=== PATIENT | female | born 1980 | race Caucasian/White ===

== ENCOUNTER 2017-01-15 12:34 | Inpatient (IN) | payer OTHER ==
[~2017-01-15] VITALS: Ht 167.6 cm; Wt 112.7 kg
[~2017-01-15 12:34] MED LIST: SERTRALINE 100 MG TAB PO SCH
[2017-01-15] MEDS ORDERED: ZYRT10TA2 PO (12:45)
[2017-01-15] MEDS ORDERED: SING10TA32 PO (12:45)
[2017-01-15] MEDS ORDERED: ZOLO100T PO (12:45)
[2017-01-15] MEDS ORDERED: DULE100A INH (12:45)
[2017-01-15] MEDS ORDERED: SPRI28TA PO (12:45)
[2017-01-15 13:22] LABS: MEAN CORPUSCULAR HGB CONC 32.9 g/dl (32.0-36.5); PLATELET COUNT, AUTOMATED 293 10^3/uL (150-450); RED CELL DISTRIBUTION WIDTH 13.3 % (11.5-14.5); WHITE BLOOD COUNT 8.2 10^3/uL (4.0-10.0)
[2017-01-15 13:34] LABS: METHADONE URINE NEGATIVE (NEGATIVE)
[2017-01-15 13:35] LABS: CONTROL LINE HCG INT CTR LINE PRESENT
[2017-01-15 14:10] LABS: ALBUMIN 3.3 GM/DL (3.2-5.2); ALBUMIN/GLOBULIN RATIO 0.72 (1.00-1.93); ALKALINE PHOSPHATASE 55 U/L (45-117); ALT/SGPT 18 U/L (12-78); ANION GAP 9 MEQ/L (8-16); AST/SGOT 11 U/L (7-37); BILIRUBIN,TOTAL 0.3 MG/DL (0.2-1.0); BLOOD UREA NITROGEN 6 MG/DL (7-18); CALCIUM LEVEL 8.6 MG/DL (8.5-10.1); CARBON DIOXIDE LEVEL 23 MEQ/L (21-32); CHLORIDE LEVEL 108 MEQ/L (98-107); CREATININE FOR GFR 0.78 MG/DL (0.55-1.02); GLOMERULAR FILTRATION RATE > 60.0 (>60); GLUCOSE, FASTING 92 MG/DL (70-105); SODIUM LEVEL 140 MEQ/L (136-145); TOTAL PROTEIN 7.9 GM/DL (6.4-8.2)
[2017-01-15] MEDS ORDERED: MOM 30ML SUSPENSION UDC PO PRN (15:30)
[2017-01-15] MEDS ORDERED: OLANZapine 5 MG TAB PO PRN (15:30)
[2017-01-15] MEDS ORDERED: traZODone 50 MG TAB PO PRN (15:30)
[2017-01-15] MEDS ORDERED: MAALOX 30 ML SUSP *UDC PO PRN (15:30)
[2017-01-15] MEDS ORDERED: CYCL10TA PO (16:43)
[2017-01-15] MEDS ORDERED: ESTA0.25 PO (16:43)
[2017-01-15] MEDS ORDERED: BENT10CA PO (16:43)
[2017-01-15] MEDS: CETIRIZINE (ZyrTEC) 10 MG TAB PO SCH (20:51)
[2017-01-15] MEDS: SERTRALINE 100 MG TAB PO SCH (20:52)
[2017-01-15] MEDS: MONTELUKAST 10 MG TAB PO SCH (20:52)
[2017-01-15] MEDS: ACETAMINOPHEN TAB 650MG DOSE (2X325MG) PO PRN (20:52)
[2017-01-15] MEDS ORDERED: ENTER DRUG NAME HERE (PATIENT'S OWN MED) INH SCH (21:00)
[2017-01-16 07:00] VITALS: BP 140/86
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
[2017-01-16] MEDS ORDERED: ENTER DRUG NAME HERE (PATIENT'S OWN MED) PO SCH (09:00)
[2017-01-16] MEDS ORDERED: CETIRIZINE (ZyrTEC) 10 MG TAB PO SCH (09:00)
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
[2017-01-16 18:00] VITALS: BP 140/98
[2017-01-16] MEDS: ACETAMINOPHEN TAB 650MG DOSE (2X325MG) PO PRN (19:08)
[2017-01-16] MEDS: MONTELUKAST 10 MG TAB PO SCH (21:08)
[2017-01-16] MEDS: CETIRIZINE (ZyrTEC) 10 MG TAB PO SCH (21:08)
[2017-01-16] MEDS: SERTRALINE 100 MG TAB PO SCH (21:09)
[2017-01-17 06:39] VITALS: BP 106/53
--- NOTE | 2017-01-17 09:25 | ECGEPIP ---
Stationary ECG Study [facility] Test Date: 2017-01-16 Pat Name: SAYDA HOLLINGSWORTH Department: Room: [place] [address] Gender: F Special Education Director: JIM : 1980 Requested By: Gayla Nguyen Order Number: [id number] Reading MD: Scot Roa Measurements Intervals [place] Rate: 78 P: 45 HI: 142 QRS: 1 QRSD: 98 T: 10 QT: 398 QTc: 453 Interpretive Statements SINUS RHYTHM Normal Electronically Signed On 01-17-2017 9:24:34 EST by Scot Roa
--- NOTE | 2017-01-17 10:40 | MHDSPDOC ---
[facility] Discharge Summary Discharge Summary DATE OF ADMISSION: Jan 15, 2017 at 15:25 DATE OF DISCHARGE: 01/17/17 DISCHARGE DIAGNOSES: 1. MDD REASON FOR ADMISSION: SI CONSULTANTS INVOLVED: NA HISTORY OF PRESENT ILLNESS: Patient is a 36-year-old female, no PMH, PSH of depression and anxiety, no prior psychiatric hospitalizations, one prior SA, presents for SI. Patient states that she had passive SI before admission, without intent and plan. On this interview, denies current SI intent and plan. Patient endorses feeling depressed before but with improved mood now. States that she was a little fatigued, worthless, concentration, overeating prior to coming into the hospital. Denies manic symptoms, denies AVH. Pt feels stressed about her son's school performance and that he may be diagnosed with ADHD, also this son needs surgery for a thumb. Also states that she was stressed about her weight and felt stressed that she was having her period. Denies manic and psychotic symptoms. Took 14 pills of aspirin in high school as a suicide attempt, but no other attempts. Does not see outpt psychiatrist, has been on zoloft 100 mg daily from PCP for almost 2 years. Pt describes past compulsive behaviors including overshopping, and knitting to the point of hurting her wrists. HOSPITAL COURSE: Patient's suicidal ideations subsided within a few hours after admission. She was continued on her home medication of zoloft 100 mg daily, and was given trazodone 50 mg PRN for sleep. Patient's mood improved over the hospital course and she expressed desire to go home. She was future oriented, discussed plans when she got back. DISCHARGE ASSESSMENT: Upon discharge patient was euthymic, future oriented, compliant with treatment and plan. MENTAL STATUS EXAMINATION ON DISCHARGE: Speech is normal RRVT Behavior: cooperative, calm, related Thought processes including: linear Thought content: appropriate to conversation Judgment: good Insight: good Orientation:AAOx3 Mood: good Affect: euthymic MEDICATIONS ON DISCHARGE: - continue zoloft 100 mg daily for mood, as prescribed by her PCP outpatient PLAN/FOLLOWUP ARRANGEMENTS: Patient has her own transportation. The planner called the , who was comfortable with the patient returning. network planner to help patient arrange an appt in her local city. Patient receives her zoloft from PCP, and she has enough medications left until next appt. The amount of time spent in the coordination of care for this patient was approximately 30 minutes. Vital Signs/I&Os Vital Signs Date Time Temp Pulse Resp B/P (MAP) Pulse Ox O2 Delivery O2 Flow Rate FiO2 01/17/17 06:39 98.2 71 18 106/53 (70) 01/15/17 18:03 97 Room Air Medications Scheduled (Dulera 100-5 Mcg/Act) 1 Aer Aer, 2 PUFFS INH BID, (Reported) (Estarylla 0.25-35 mg-Mcg) 1 Tab Tab, 1 TAB PO QHS, (Reported) Cetirizine HCl (Zyrtec Allergy) 10 Mg Tab, 10 MG PO QHS, (Reported) Montelukast Sodium (Singulair) 10 Mg Tab, 10 MG PO QHS, (Reported) Sertraline Hcl (Zoloft) 100 Mg Tab, 100 MG PO QHS, (Reported) Scheduled PRN Cyclobenzaprine HCl (Cyclobenzaprine HCl) 10 Mg Tab, 10 MG PO TID PRN for MUSCLE SPASMS, (Reported) Dicyclomine Hcl (Bentyl) 10 Mg Cap, 10 MG PO for IBS, (Reported) Allergies Coded Allergies: No Known Allergies (Unverified , 01/15/17) KYLAH NINO MD Jan 17, 2017 10:40
== END 2017-01-17 15:10 | disposition home or self-care (01) | DRG 881 ==
LOC: M ED 12:34 → M ED INP 15:25 → M PSY 18:16
PROVIDERS: ADMIT Psychiatry & Neurology Psychiatry; ATTEND Psychiatry & Neurology Psychiatry
DX: F32.9 Major depressive disorder, single episode, unspecified (principal); Z79.899 Other long term (current) drug therapy; J45.909 Unspecified asthma, uncomplicated; F41.9 Anxiety disorder, unspecified; J30.9 Allergic rhinitis, unspecified; K58.8 Other irritable bowel syndrome; M54.2 Cervicalgia; M25.569 Pain in unspecified knee